=== PATIENT | male | born 1970 | race Caucasian/White ===

== ENCOUNTER 2017-08-10 09:51 | Emergency (ER) | payer OTHER ==
[~2017-08-10] VITALS: Ht 182.9 cm; Wt 106.6 kg
[~2017-08-10 09:51] MED LIST: ATEN50 PO; CARI350 PO; CITA20 PO; HYDCHL12.5 PO; IBUP200; IBUP800 PO; NEBI5 PO; OXYACE5T PO
[2017-08-10] MEDS ORDERED: Voltaren100 GM TOP (11:05)
[2017-08-10] MEDS ORDERED: IBUP800 PO (11:05)
[2017-08-10] MEDS ORDERED: Robaxin500 MG PO (11:05)
== END 2017-08-10 12:45 | disposition home or self-care (01) ==
LOC: ER 09:51
DX: M25.511 Pain in right shoulder (principal); M77.9 Enthesopathy, unspecified; Z79.899 Other long term (current) drug therapy; I10 Essential (primary) hypertension
CPT/HCPCS: 99283

== ENCOUNTER 2018-09-06 07:33 | Day surgery (SDC) | payer OTHER ==
[~2018-09-06] VITALS: Ht 180.3 cm; Wt 98.8 kg
[~2018-09-06 07:33] MED LIST changes: +AMLO10; +CLOP75; +LISI20; +Robaxin500 MG PO; +SIMV10; +Voltaren100 GM TOP
--- NOTE | 2018-09-06 08:07 | NUR ---
09/06/18 0807 Lilibeth Carr 2 IV ATTEMPTS IN RIGHT HAND, COULD NOT RECEIVE FLASH. PT TOW. SUCCESSFUL IV PLACED IN RIGHT AC.
== END 2018-09-06 10:00 | disposition home or self-care (01) ==
LOC: ORSCSDS 07:33
PROVIDERS: Internal Medicine Gastroenterology
PROC: 0DBK8ZX Excision of Ascending Colon, Via Natural or Artificial Opening Endoscopic, Diagnostic (ICD-10-PCS; principal; 2018-09-06 08:45)
PROC: 0DBM8ZX Excision of Descending Colon, Via Natural or Artificial Opening Endoscopic, Diagnostic (ICD-10-PCS; principal; 2018-09-06 08:45)
PROC: 06LY4CC Occlusion of Hemorrhoidal Plexus with Extraluminal Device, Percutaneous Endoscopic Approach (ICD-10-PCS; principal; 2018-09-06 08:45)
DX: K62.5 Hemorrhage of anus and rectum (principal); D12.2 Benign neoplasm of ascending colon; D12.4 Benign neoplasm of descending colon; K64.4 Residual hemorrhoidal skin tags; K64.8 Other hemorrhoids; I25.10 Atherosclerotic heart disease of native coronary artery without angina pectoris; G47.33 Obstructive sleep apnea (adult) (pediatric); I10 Essential (primary) hypertension; E78.5 Hyperlipidemia, unspecified; F32.9 Major depressive disorder, single episode, unspecified; E78.00 Pure hypercholesterolemia, unspecified; Z79.899 Other long term (current) drug therapy
CPT/HCPCS: 88305; J2704; J7120

== ENCOUNTER → 2019-06-12 | Outpatient (CLI) | payer OTHER ==
[2019-06-12 20:22] LABS: U Amphetamine Screen Not Detected; U Barbituate Screen Not Detected; U Benzodiazapine Screen Not Detected; U Buprenorphine Screen Not Detected; U Cannabinoids Screen Not Detected; U Cocaine Screen Not Detected; U Methadone Screen Not Detected; U Methamphetamine Screen Not Detected; U Opiates Screen DETECTED; U Oxycodone Screen Not Detected; U Propoxyphene Screen Not Detected
== END | disposition home or self-care (01) ==
LOC: LAB 18:51 → LAB SHORT 18:51
PROVIDERS: Nurse Practitioner Family
DX: Z51.81 Encounter for therapeutic drug level monitoring (principal); Z79.891 Long term (current) use of opiate analgesic

== ENCOUNTER → 2020-06-08 | Outpatient (CLI) | payer BC | LOC: LAB 16:00 → LAB SHORT 16:00 | DX: L08.9 Local infection of the skin and subcutaneous tissue, unspecified (principal); B95.0 Streptococcus, group A, as the cause of diseases classified elsewhere | CPT/HCPCS: 87070; 87147; 87205 ==

== ENCOUNTER 2025-04-19 06:34 | Day surgery (SDC) | payer OTHER ==
[2025-04-19] VITALS (14 sets, daily range): BP systolic 107–151; BP diastolic 76–106
[~2025-04-19] VITALS: Ht 180.3 cm; Wt 106.2 kg
[~2025-04-19 06:34] MED LIST changes: +ACET325 PO; -AMLO10; +AMLO10 PO; +ASPI81CH PO; +ATEN25 PO; +ATOR80 PO; +BUPR100ER PO; +CATAPRES0.1 MG PO; +CELEXA40 M1 PO; -CLOP75; +CLOP75 PO; +ELIQUIS5 M2 PO; -LISI20; +LISI20 PO; +MIRALAX17 GM PO; +Methocarbamol500 MG PO; +PRAV20 PO; +TAMS.4ER PO
[2025-04-19] MEDS ORDERED: Heparin Sodium 1000 Units/ML 10ML MDV ONE ×2 (07:01→08:20)
[2025-04-19] MEDS ORDERED: NS 1,000 ML IV ONE ×2 (07:01→07:14)
[2025-04-19] MEDS ORDERED: NS 250 ML IV ONE (07:01)
[2025-04-19] MEDS ORDERED: Verapamil HCL 2.5 MG/ML 2ML Injection ONE (07:01)
[2025-04-19] MEDS ORDERED: Nitroglycerin 2 MG/20 ML BTL ONE (07:02)
[2025-04-19] MEDS ORDERED: D3 PO (07:07)
[2025-04-19] MEDS ORDERED: MAG 64 PO (07:08)
[2025-04-19] MEDS ORDERED: SUPER C PO (07:09)
[2025-04-19] MEDS ORDERED: HYDCHL25 PO (07:11)
[2025-04-19] MEDS ORDERED: FentaNYL Citrate 50 MCG/ML 2 ML Injection ONE (07:48)
[2025-04-19] MEDS ORDERED: Midazolam HCl 1MG / ML 2ML Vial ONE (07:48)
--- NOTE | 2025-04-19 08:55 | NUR ---
PATIENT ARRIVED BACK TO RECOVERY ROOM SITTING UPRIGHT IN RECLINER, CONVERSING APPROPRIATELY. PATIENT DENYING ANY CP. VSS ON RA. RIGHT RADIAL TR BAND SITE C/D/I SOFT/NONTENDER, NO EVIDENCE OF BLEEDING.
[2025-04-19] MEDS ORDERED: Aspir 8181 MG PO (09:03)
[2025-04-19] MEDS ORDERED: EZET10 PO (09:37)
--- NOTE | 2025-04-19 10:02 | NUR ---
INITIAL 1 CC OF AIR REMOVED FROM RIGHT RADIAL TR BAND. SITE C/D/I SOFT/NONTENDER, NO EVIDENCE OF BLEEDING. VSS ON RA. PATIENT TOLERATING PO INTAKE WELL. PATIENT RESTING COMFORTABLY IN RECLINER. SPOUSE PRESENT AT BEDSIDE.
--- NOTE | 2025-04-19 11:00 | NUR ---
PATIENT AMBULATING TO RESTROOM WITHOUT DIFFICULTY. RIGHT RADIAL SITE C/D/I SOFT/TENDER, NO EVIDENCE OF BLEEDING. VSS ON RA. PATIENT SITTING UPRIGHT IN RECLINER.
--- NOTE | 2025-04-19 11:57 | NUR ---
ALL AIR REMVOED FROM RIGHT RADIAL TR BAND. SITE C/D/I SOFT/TENDER, NO EVIDENCE OF BLEEDING. VSS ON RA. PATIENT SITTING UPRIGHT IN RECLINER CONVERSING APPROPRIATELY WITH FAMILY. PATIENT DENYING ANY PAIN.
--- NOTE | 2025-04-19 12:00 | NUR ---
PATIENT AMBULATING TO RESTROOM WITHOUT DIFFICULTY. RIGHT RADIAL SITE C/D/I SOFT/TENDER. VSS ON RA.
--- NOTE | 2025-04-19 12:45 | NUR ---
PATIENT DISCHARGED HOME AT THIS TIME. RIGHT RADIAL TR BAND REMOVED, CLOTH DOT AND WHITE ARM BOARD IN PLACE. PIV REMOVED WITHOUT DIFFICULTY, CATHETER INTACT. VSS ON RA. DISCHARGE INSTRUCTIONS REVIEWED WITH PATIENT AND SPOUSE. ALL QUESTIONS WERE ANSWERED. [facility] AND SPOUSE ABLE TO PROVIDE TRANSPORTATION HOME.
== END 2025-04-19 13:39 | disposition home or self-care (01) ==
LOC: MHTC 06:34
DX: I25.10 Atherosclerotic heart disease of native coronary artery without angina pectoris (principal); T82.855A Stenosis of coronary artery stent, initial encounter; I48.91 Unspecified atrial fibrillation; I47.10 Supraventricular tachycardia, unspecified; E78.5 Hyperlipidemia, unspecified; Z86.73 Personal history of transient ischemic attack (TIA), and cerebral infarction without residual deficits; Z79.01 Long term (current) use of anticoagulants; Z79.02 Long term (current) use of antithrombotics/antiplatelets; Z79.899 Other long term (current) drug therapy; Z88.8 Allergy status to other drugs, medicaments and biological substances; Y83.1 Surgical operation with implant of artificial internal device as the cause of abnormal reaction of the patient, or of later complication, without mention of misadventure at the time of the procedure
CPT/HCPCS: 76937; 85347; 92920; 93454; 99152; 99153; A9270; C1725; C1769; C1874; C1887; C1894; C9600; J1644; J2250; J3010; J3246; J7030; J7050; Q9967